=== PATIENT | female | born 1995 | race Caucasian/White ===

== ENCOUNTER 2016-11-13 12:49 | Emergency (ER) | payer BC, OTHER ==
--- NOTE | 2016-11-13 13:20 | ED ORDER SUMMARY ---
..... Patient: LINDY PEERA OrderSheet [facility] VisitID: [id number] [place] [address] 21y, F Registration Date/Time: 11/13/2016 ORDER SHEET Weight: 58.9 kg (stated) Allergies: Amoxicillin GENERAL ORDERS: MEDICATION ORDERS: GI Cocktail WHITE PO 30 mL with Lidocaine Viscous Mouth/Throat 15 mL, Maalox Plus Oral 15 mL (NOW) (13:14 11/13/2016 HBivens A.R.N.P.) (Ack 13:15 SReitz R.N.) (13:36 SReitz R.N.) IV FLUIDS: Ativan IV 2 mg (HIGH ALERT MEDICATION, NOW) (13:14 11/13/2016 HBivens A.R.N.P.) (Ack 13:15 SReitz R.N.) (13:37 SReitz R.N.) ORDER SHEET NOTES: [Electronically signed by Tabatha France R.N. (14:11 11/13/2016)] [Electronically signed by Gayle CarrollR.N.PMendy (17:46 11/13/2016)] [Electronically locked/signed by Tabatha France R.N. (14:11 11/13/2016)]
--- NOTE | 2016-11-13 13:20 | ED NURSING NOTES ---
Clinical Report - Nurses [facility] [address] [place] [address] 11/13/2016 12:56 Patient: LINDY PEREA TRIAGE Triage time 12:59. Acuity: LEVEL 3. Chief Complaint: SORE THROAT and SWELLING OF JAW / FACE. Alert. No acute distress. ( Pt. states she has an infection in her mouth which appeared last night. Then today her lymph nodes are swollen and its causing dyspnea.). SEPSIS SCREEN: Sepsis Screen. Negative (no infection suspected/documented). MAURICIO COMA SCORE: Mauricio Coma Scale: 15- eyes open spontaneously (4); best verbal response- oriented x 4 (5); best motor response- obeys commands (6). --13:07 Tabatha Fracne R.N. 12:58 11/13/16. BP: 127/80. HR: 93. RR: 26. O2 saturation: 100%. Temp: 97.8 F. Pain level now 05/11. --13:07 Tabatha France R.N. Weight: 58.9 kg stated. Height/Length: 63 inches Per Patient. BMI: 23. --13:00 Tabatha France R.N. Medications None. --13:02 Tabatha France R.N. Allergies Amoxicillin. --13:02 Tabatha France R.N. History Arrived by private vehicle. Historian: patient. Accompanied by (boyfriend). Primary physician (Ana Maria walker [place]: Dr. Gilbert). This started yesterday. Treatment INSURANCE SALESPERSON: None. PAST MEDICAL HX: Immunizations: up-to-date. Last normal menstrual period now. SOCIAL HX: Never smoker. No alcohol use or drug use. No infectious disease exposure. ABUSE ASSESSMENT: No report of abuse. NUTRITIONAL RISK ASSESSMENT: The nutritional risk assessment revealed no deficiencies. FUNCTIONAL ASSESSMENT: Functional assessment: no impairments noted. LEARNING NEEDS ASSESSMENT: The learning needs assessment revealed no barriers. --13:07 Tabatha France R.N. PROBLEMS: Anxiety Reaction. Cyclical vomiting syndrome. --13:04 Tabatha France R.N. ADDITIONAL SURGERIES: ANKLES. --13:04 Tabatha France R.N. Interventions ID band on patient. Ambulatory. --13:07 Tabatha France R.N. PHYSICAL ASSESSMENT Ambulatory to room. GENERAL / NEURO / PSYCH: Appears anxious. ( unable to sit still during triage. Pt. is crying and very upset.). HEENT: Voice within normal limits. Mouth within normal limits upon inspection. Mucous membranes are pink. RESPIRATORY: Respirations not labored. CVS: Capillary refill less than 2 seconds. SKIN: Skin is warm and dry. --13:09 Tabatha France R.N. 13:09. ( periorbital bruising on left eye. Pt. states she fell down and hit her eye. Pt. states she feels safe where she is living and in her relations.). --14:00 Tabatha France R.N. NURSING PROGRESS NOTES Patient gowned. Head of bed elevated. Two patient identifiers checked. Call light placed in reach. Side rails up x 2. Bed placed in lowest position. Brakes of bed on. Patient ready for evaluation- chart flagged. --13:09 Tabatha France R.N. 13:14 11/13/2016 Site #1 started via IV in the right with an 20g angiocath; one attempt. Blood drawn: rainbow set. Labeled in the presence of the patient and sent to the lab. Saline lock flushed with 10 mL saline (accessed by GIDEON Painter). --13:14 Tabatha France R.N. EKG time: (1259). EKG was ordered, performed by a tech and shown to the ED physician. --13:20 Sheri Enamorado 13:15 11/13/2016 GI COCKTAIL WHITE (Simethicone) PO 50 mL given. Allergies verified and confirmed 5 rights. --13:36 Tabatha France R.N. 13:15 11/13/2016 Ativan (LORazepam) IVP 2 mg given over 2 minute(s) via site #1. Allergies verified, confirmed 5 rights and sedative warning given to the patient. IV patency established. IV site checked: no pain, redness, or swelling. IV flushed thoroughly pre- and post-medication administration. --13:37 Tabatha France R.N. DISPOSITION / DISCHARGE 13:45 11/13/2016 Site #1 removed upon discharge. Bandage applied. --14:01 [facility] Condition at departure: improved and stable. No learning barriers present. Discharge instructions provided and reviewed with the patient. Patient verbalized understanding. Written instructions provided in [place]. ( Taught side effects of medication and that virus is contagious. Do not share eating/drinking utensils.). The patient was discharged by the nurse practitioner. She was discharged home and accompanied by resource management specialist. She left the Emergency Department ambulatory and via private vehicle. Director Of Sustainability Programs driving. FALL RISK ASSESSMENT: Fall risk assessment completed. No fall risk identified. --14:04 [facility] 14:01 11/13/16. BP: 126/67. HR: 80 (regular). RR: 14 (regular and unlabored). O2 saturation: 96%. Temp: 98.4 F. Pain level now: 0/10. --14:04 [facility] Departure time: 13:45. --14:08 Tabatha France R.N. ( correction to prior charting: all discharge done at 13:45.). --14:09 Tabatha France R.N. Locked/Released at 11/13/2016 14:11 by Tabatha France R.N.
--- NOTE | 2016-11-13 13:20 | ED ORDER SUMMARY ---
..... Patient: LINDY PEREA OrderSheet [facility] VisitID: [id number] [place] [address] 21y, F Registration Date/Time: 11/13/2016 ORDER SHEET Weight: 58.9 kg (stated) Allergies: Amoxicillin GENERAL ORDERS: MEDICATION ORDERS: GI Cocktail WHITE PO 30 mL with Lidocaine Viscous Mouth/Throat 15 mL, Maalox Plus Oral 15 mL (NOW) (13:14 11/13/2016 HBivens A.R.N.P.) (Ack 13:15 SReitz R.N.) (13:36 SReitz R.N.) IV FLUIDS: Ativan IV 2 mg (HIGH ALERT MEDICATION, NOW) (13:14 11/13/2016 HBivens A.R.N.P.) (Ack 13:15 SReitz R.N.) (13:37 SReitz R.N.) ORDER SHEET NOTES: [Electronically signed by Tabatha France R.N. (14:11 11/13/2016)] [Electronically signed by Gayle CarrollR.N.PMendy (17:46 11/13/2016)] [Electronically locked/signed by Tabatha France R.N. (14:11 11/13/2016)]
--- NOTE | 2016-11-13 13:20 | ED CLINICAL REPORT ---
Clinical Report - Physicians/Mid Levels [facility] [address] [place] [address] 11/13/2016 12:56 Patient: LINDY PEREA Time Seen: 1305; upon arrival, initial patient contact, initial documentation, patient care assumed. Arrived- By private vehicle. Historian- patient and significant other. HISTORY OF PRESENT ILLNESS Chief Complaint: MOUTH SORE. This started yesterday and is still present. It was abrupt in onset and has been constant. Pain described as severe. The patient has had a sore throat. She has had multiple painful mouth sores (says there is a cut in her mouth and she doesn't know how she got it). No nasal discharge or congestion or ear pain. (feels lump in her neck, and thinks her airway is closing off, or that she has ca, having issues with anxiety as well). Similar symptoms previously: None. Recent medical care: Not recently seen/assessed. REVIEW OF SYSTEMS No fever, cough, difficulty breathing or chest pain. She has had vomiting (suffers from chronic vomiting, none today). All systems otherwise negative, except as recorded above. PAST HISTORY See nurses notes. PROBLEMS: Anxiety Reaction. Cyclical vomiting syndrome. --13:04 Tabatha France, RMendyN. ADDITIONAL SURGERIES: ANKLES. --13:04 Tabatha France R.N. SOCIAL HISTORY Never smoker. No alcohol use or drug use. No recent travel. Is a local resident. FAMILY HISTORY Negative. ADDITIONAL NOTES The nursing notes have been reviewed with agreement regarding the chief complaint, HPI, ROS, PMH and patient medications and allergies. PHYSICAL EXAM Vital Signs: 11/13/2016 12:58 BP: 127/80. HR: 93. RR: 26. O2 saturation: 100%. Temp: 97.8 F. Appearance: Alert. No acute distress. Anxious. (pt fine one sec, and then starts yelling and freaking out next). Head: Normal external inspection. Eyes: Pupils equal, round and reactive to light. Conjunctivae and eyelids normal. ENT: Ears normal. Nose normal. Gums abnormal. Many tender mouth ulcerations present in the posterior pharynx and on the tongue, buccal surface and gingivae. No erythema at the base of the mouth ulceration(s). No nontender mouth ulcerations. Mild generalized pharyngeal erythema with vesicles present. No right tonsillar exudate, right tonsillar abscess, right tonsillar swelling, right peritonsillitis, left tonsillar exudate, left tonsillar abscess, left tonsillar swelling or left peritonsillitis. Pharynx normal. Lips normal. No trismus present. Uvula midline. Neck: Lymphadenopathy. Normal inspection. Mild right anterior neck and mild left anterior neck lymphadenopathy present. Trachea midline. Thyroid normal. Neck supple. CVS: Normal heart rate and rhythm. Heart sounds normal. Pulses normal. Respiratory: No respiratory distress. Breath sounds normal. Chest nontender. Abdomen: Soft and nontender. No organomegaly. Skin: Normal skin color. No rash. Normal skin turgor. Extremities: Extremities exhibit normal ROM. Extremities nontender. Neuro: Oriented X 3. No motor deficit. No sensory deficit. PROGRESS AND PROCEDURES Patient and spouse counseled in person regarding the patient's stable condition and diagnosis. Differential Diagnosis: Other possible considerations: pharyngitis, herpes, herpetic gingivostomatitis, anxiety, substance abuse, dental trauma, gingivitis. Above considerations are based on history and physical exam. Differential diagnosis was discussed with patient and patient's spouse. Disposition: Discharged home in good and improved condition (13:20). Condition: good and stable. CLINICAL IMPRESSION Herpetic gingivostomatitis Anxiety reaction. INSTRUCTIONS Gargle with warm salt water 3 to 6 times a day until better, using 1/2 teaspoon salt in one glass of water. Warnings: GENERAL WARNINGS: Return or contact your physician immediately if your condition worsens or changes unexpectedly, if not improving as expected, or if other problems arise. Specifically return if problem worsens. Prescription Medications: Zofran 4 mg: Take 1 orally every six hours as needed for nausea/vomiting. Dispense ten (10). No refills. Substitution is permissible. Viscous 2% Lidocaine 30 mL, Maalox 30 mL and Diphenhydramine (12.5 mL/5 mL) 30 mL. Swish, gargle, and spit 1-2 teaspoons every 6 hours as needed for 5 days. Dispense ninety (90) mL. No refills Xanax 0.25 mg: Take 1 orally every 8 hours as needed for anxiety. Dispense fifteen (15). No refills. Substitution is permissible. Follow-up: Follow up with your doctor in about three days as needed. Call for an appointment. Summary of care provided to patient. Understanding of the discharge instructions verbalized by patient. (Electronically signed by Gayle Carroll A.R.N.P. 11/13/2016 17:46)
--- NOTE | 2016-11-13 13:20 | ED NURSING NOTES ---
Clinical Report - Nurses [facility] [address] [place] [address] 11/13/2016 12:56 Patient: LINDY PEREA TRIAGE Triage time 12:59. Acuity: LEVEL 3. Chief Complaint: SORE THROAT and SWELLING OF JAW / FACE. Alert. No acute distress. ( Pt. states she has an infection in her mouth which appeared last night. Then today her lymph nodes are swollen and its causing dyspnea.). SEPSIS SCREEN: Sepsis Screen. Negative (no infection suspected/documented). MAURICIO COMA SCORE: Mauricio Coma Scale: 15- eyes open spontaneously (4); best verbal response- oriented x 4 (5); best motor response- obeys commands (6). --13:07 Tabatha France R.N. 12:58 11/13/16. BP: 127/80. HR: 93. RR: 26. O2 saturation: 100%. Temp: 97.8 F. Pain level now 05/11. --13:07 Tabatha France R.N. Weight: 58.9 kg stated. Height/Length: 63 inches Per Patient. BMI: 23. --13:00 Tabatha France R.N. Medications None. --13:02 Tabatha France R.N. Allergies Amoxicillin. --13:02 Tabatha France R.N. History Arrived by private vehicle. Historian: patient. Accompanied by (boyfriend). Primary physician (Ana Maria walker [place]: Dr. Gilbetr). This started yesterday. Treatment MOLECULAR TECHNOLOGIST: None. PAST MEDICAL HX: Immunizations: up-to-date. Last normal menstrual period now. SOCIAL HX: Never smoker. No alcohol use or drug use. No infectious disease exposure. ABUSE ASSESSMENT: No report of abuse. NUTRITIONAL RISK ASSESSMENT: The nutritional risk assessment revealed no deficiencies. FUNCTIONAL ASSESSMENT: Functional assessment: no impairments noted. LEARNING NEEDS ASSESSMENT: The learning needs assessment revealed no barriers. --13:07 Tabatha France R.N. PROBLEMS: Anxiety Reaction. Cyclical vomiting syndrome. --13:04 Tabatha France R.N. ADDITIONAL SURGERIES: ANKLES. --13:04 Tabatha France R.N. Interventions ID band on patient. Ambulatory. --13:07 Tabatha France R.N. PHYSICAL ASSESSMENT Ambulatory to room. GENERAL / NEURO / PSYCH: Appears anxious. ( unable to sit still during triage. Pt. is crying and very upset.). HEENT: Voice within normal limits. Mouth within normal limits upon inspection. Mucous membranes are pink. RESPIRATORY: Respirations not labored. CVS: Capillary refill less than 2 seconds. SKIN: Skin is warm and dry. --13:09 Tabatha France R.N. 13:09. ( periorbital bruising on left eye. Pt. states she fell down and hit her eye. Pt. states she feels safe where she is living and in her relations.). --14:00 Tabatha France R.N. NURSING PROGRESS NOTES Patient gowned. Head of bed elevated. Two patient identifiers checked. Call light placed in reach. Side rails up x 2. Bed placed in lowest position. Brakes of bed on. Patient ready for evaluation- chart flagged. --13:09 Tabatha France R.N. 13:14 11/13/2016 Site #1 started via IV in the right with an 20g angiocath; one attempt. Blood drawn: rainbow set. Labeled in the presence of the patient and sent to the lab. Saline lock flushed with 10 mL saline (accessed by GIDEON Painter). --13:14 Tabatha France R.N. EKG time: (1259). EKG was ordered, performed by a tech and shown to the ED physician. --13:20 Sheri Enamorado 13:15 11/13/2016 GI COCKTAIL WHITE (Simethicone) PO 50 mL given. Allergies verified and confirmed 5 rights. --13:36 Tabatha France R.N. 13:15 11/13/2016 Ativan (LORazepam) IVP 2 mg given over 2 minute(s) via site #1. Allergies verified, confirmed 5 rights and sedative warning given to the patient. IV patency established. IV site checked: no pain, redness, or swelling. IV flushed thoroughly pre- and post-medication administration. --13:37 Tabatha France R.N. DISPOSITION / DISCHARGE 13:45 11/13/2016 Site #1 removed upon discharge. Bandage applied. --14:01 [facility] Condition at departure: improved and stable. No learning barriers present. Discharge instructions provided and reviewed with the patient. Patient verbalized understanding. Written instructions provided in Turkish. ( Taught side effects of medication and that virus is contagious. Do not share eating/drinking utensils.). The patient was discharged by the nurse practitioner. She was discharged home and accompanied by service station console operator. She left the Emergency Department ambulatory and via private vehicle. Locum Tenens driving. FALL RISK ASSESSMENT: Fall risk assessment completed. No fall risk identified. --14:04 [facility] 14:01 11/13/16. BP: 126/67. HR: 80 (regular). RR: 14 (regular and unlabored). O2 saturation: 96%. Temp: 98.4 F. Pain level now: 0/10. --14:04 [facility] Departure time: 13:45. --14:08 Tabatha France R.N. ( correction to prior charting: all discharge done at 13:45.). --14:09 Tabatha France R.N. Locked/Released at 11/13/2016 14:11 by Tabatha France R.N.
--- NOTE | 2016-11-13 17:46 | ED MAR SUMMARY ---
..... Medication Administration Record [facility] [address] [place] [address] Patient: LINDY PEREA Visit ID: [id number] 21y, F Weight: 58.9 kg Height/Length: 63 in BMI: 23 ALLERGIES: Amoxicillin Given 13:11/13/2016 Tabatha France RStefanie Medication Administered: ATIVAN [IVP] (LORAZEPAM), Dose: 2 mg IVP over 2 minute(s), Site: #1 right. Medication Ordered: Ativan IV 2 mg (HIGH ALERT MEDICATION, NOW). Given 13:11/13/2016 Tabatha France, RMendyNMendy Medication Administered: GI COCKTAIL WHITE [PO] (SIMETHICONE), Dose: 50 mL PO. Medication Ordered: GI Cocktail WHITE PO 30 mL with Lidocaine Viscous Mouth/Throat 15 mL, Maalox Plus Oral 15 mL (NOW).
--- NOTE | 2016-11-13 17:46 | ED MED RECONCILIATION SUMMARY ---
Patient: LINDY PEREA Medication Reconciliation Report [facility] VisitID: [id number] [place] [address] 21y, F Registration Date/Time: 11/13/2016 Weight: 58.9 kg Height/Length: 63 in. BMI: 23.0 ALLERGIES: Amoxicillin The patient's Home Medications are listed below: NONE. The source(s) of the original Home Medication information: Not obtained. The following Medications were given to the patient in the Emergency Department: GI COCKTAIL WHITE [PO] PO 50 mL, administered: 11/13/2016 1:15:00 PM Ativan [IVP] IVP 2 mg, administered: 11/13/2016 1:15:00 PM The following Medications were prescribed to the patient: Zofran 4 mg: Take 1 orally every six hours as needed for nausea/vomiting. Dispense ten (10). No refills. Substitution is permissible. -- Gayle Carroll, A.R.N.P. Viscous 2% Lidocaine 30 mL, Maalox 30 mL and Diphenhydramine (12.5 mL/5 mL) 30 mL. Swish, gargle, and spit 1-2 teaspoons every 6 hours as needed for 5 days. Dispense ninety (90) mL. No refills -- Gayle Carroll A.R.N.P. Xanax 0.25 mg: Take 1 orally every 8 hours as needed for anxiety. Dispense fifteen (15). No refills. Substitution is permissible. -- Gayle Carroll A.R.N.P.
--- NOTE | 2016-11-13 17:46 | ED MAR SUMMARY ---
..... Medication Administration Record [facility] [address] [place] [address] Patient: LINDY PEREA Visit ID: [id number] 21y, F Weight: 58.9 kg Height/Length: 63 in BMI: 23 ALLERGIES: Amoxicillin Given 13:11/13/2016 Tabatha France RStefanie Medication Administered: ATIVAN [IVP] (LORAZEPAM), Dose: 2 mg IVP over 2 minute(s), Site: #1 right. Medication Ordered: Ativan IV 2 mg (HIGH ALERT MEDICATION, NOW). Given 13:11/13/2016 Tabatha France, RMendyNMendy Medication Administered: GI COCKTAIL WHITE [PO] (SIMETHICONE), Dose: 50 mL PO. Medication Ordered: GI Cocktail WHITE PO 30 mL with Lidocaine Viscous Mouth/Throat 15 mL, Maalox Plus Oral 15 mL (NOW).
--- NOTE | 2016-11-13 17:46 | ED MED RECONCILIATION SUMMARY ---
Patient: LINDY PEREA Medication Reconciliation Report [facility] VisitID: [id number] [place] [address] 21y, F Registration Date/Time: 11/13/2016 Weight: 58.9 kg Height/Length: 63 in. BMI: 23.0 ALLERGIES: Amoxicillin The patient's Home Medications are listed below: NONE. The source(s) of the original Home Medication information: Not obtained. The following Medications were given to the patient in the Emergency Department: GI COCKTAIL WHITE [PO] PO 50 mL, administered: 11/13/2016 1:15:00 PM Ativan [IVP] IVP 2 mg, administered: 11/13/2016 1:15:00 PM The following Medications were prescribed to the patient: Zofran 4 mg: Take 1 orally every six hours as needed for nausea/vomiting. Dispense ten (10). No refills. Substitution is permissible. -- Gayle Carroll, A.R.N.P. Viscous 2% Lidocaine 30 mL, Maalox 30 mL and Diphenhydramine (12.5 mL/5 mL) 30 mL. Swish, gargle, and spit 1-2 teaspoons every 6 hours as needed for 5 days. Dispense ninety (90) mL. No refills -- Gayle Carroll A.R.N.P. Xanax 0.25 mg: Take 1 orally every 8 hours as needed for anxiety. Dispense fifteen (15). No refills. Substitution is permissible. -- Gayle Carroll A.R.N.P.
--- NOTE | 2016-11-13 17:46 | ED DISCHARGE INSTRUCTIONS ---
Patient: LINDY PEREA General Instructions [facility] VisitID: [id number] [place] [address] 21y, F Registration Date/Time: 11/13/2016 Herpetic gingivostomatitis Anxiety reaction. INSTRUCTIONS Gargle with warm salt water 3 to 6 times a day until better, using 1/2 teaspoon salt in one glass of water. Warnings: GENERAL WARNINGS: Return or contact your physician immediately if your condition worsens or changes unexpectedly, if not improving as expected, or if other problems arise. Specifically return if problem worsens. Prescription Medications: Zofran 4 mg: Take 1 orally every six hours as needed for nausea/vomiting. Dispense ten (10). No refills. Substitution is permissible. Viscous 2% Lidocaine 30 mL, Maalox 30 mL and Diphenhydramine (12.5 mL/5 mL) 30 mL. Swish, gargle, and spit 1-2 teaspoons every 6 hours as needed for 5 days. Dispense ninety (90) mL. No refills Xanax 0.25 mg: Take 1 orally every 8 hours as needed for anxiety. Dispense fifteen (15). No refills. Substitution is permissible. Follow-up: Follow up with your doctor in about three days as needed. Call for an appointment. Summary of care provided to patient. Understanding of the discharge instructions verbalized by patient. ADDITIONAL INFORMATION Gingivo-Stomatitis [Child] Gingivo-stomatitis is an infection affecting the gums, tongue, throat, tonsils or lining of the mouth. It causes swelling and small painful ulcers. There may be a fever. The cause of your infection may be viral or bacterial. Bacterial infections are treated with an antibiotic. Viral infections are treated only with comfort measures, since antibiotics won't be helpful. This infection should go away within 710 days. Home Care: For Mouth Sores: Use a local numbing solution such as Anbesol (comes in Baby, Regular and Maximum strength) for pain relief. If this is not available, you may use any numbing solution for teething babies. You may apply this directly to the sores with a cotton swab or with your finger. Use the numbing solution just before meals if eating is a problem. For Gum Sores: Use a cotton swab to apply Gly-Oxide (carbamide peroxide) to the gums four times a day. This is an urpr-fza-emesojx antiseptic for the mouth. If this is not available, you may use half-strength hydrogen peroxide. Dilute 1/2 cup hydrogen peroxide with 1/2 cup water. For Mouth Or Gum Sores: Older children may rinse the mouth with warm salt water (1/2 teaspoon of salt in 1 glass of warm water). Give a soft diet with plenty of fluids to prevent dehydration. If your child doesn't want to eat solid foods, it's okay for a few days, as long as s/he drinks lots of fluid. Cool drinks and frozen treats (sherbet) are soothing and easier to take. Avoid citrus juices (orange juice, lemonade, etc.) and salty or spicy foods. These may cause more pain to the mouth sores. Use acetaminophen (Tylenol) for fever, fussiness or discomfort. In infants over six months of age, you may use ibuprofen (Children's Motrin) instead of Tylenol. (Aspirin should never be used in anyone under 18 years of age who is ill with a fever. It may cause severe liver damage.) Children should stay home until their fever is gone and they are eating and drinking well. Follow Up with your doctor as advised if there has been no improvement after five days. Get Prompt Medical Attention if any of the following occur: Unable to eat or drink due to mouth pain Trouble breathing or swallowing Fever of 100.4F (38C) oral or 101.4F (38.5C) rectal or higher, not better with fever medication Unusual fussiness, drowsiness or confusion or seizure No wet diapers for 8 hours, no tears when crying; sunken eyes or dry mouth Stress Reaction Anxiety is the feeling we all get when we think something bad might happen. It is a normal response to stress and usually causes only a mild reaction. When anxiety becomes more severe, emotions may interfere with daily life. In some cases, you may not even be aware of what it is youre anxious about! During an anxiety reaction, you may feel like you are helpless, nervous, depressed or irritable. Your body may show signs of anxiety in many ways. You may experience dry mouth, shakiness, dizziness, weakness, trouble breathing, chest pressure, headache, nausea, diarrhea, tiredness, inability to sleep or sexual problems. Home Care: 1) Try to locate the sources of stress in your life. They may not be obvious! These may include: -- Daily hassles of life which pile up (traffic jams, missed appointments, car troubles, etc.) -- Major life changes, both good (new baby, job promotion) and bad (loss of job, loss of loved one) -- Overload: feeling that you have too many responsibilities and can't take care of all of them at once -- Feeling helpless, feeling that your problems are beyond what youre able to solve 2) Notice how your body reacts to stress. Learn to listen to your body signals. This will help you take action before the stress becomes severe. 3) When you can, do something about the source of your stress. (Avoid hassles, limit the amount of change that happens in your life at one time and take a break when you feel overloaded). 4) Unfortunately, many stressful situations cannot be avoided. It is necessary to learn HOW TO MANAGE STRESS better. There are many proven methods that will reduce your anxiety. These include simple things like exercise, good nutrition and adequate rest. Also, there are certain techniques that are helpful: relaxation and breathing exercises, visualization, biofeedback and meditation. For more information about this, consult your doctor or go to a local bookstore and review the many books and tapes available on this subject. Follow Up If you feel that your anxiety is not responding to self-help measures, contact your doctor or make an appointment with a counselor. Get Prompt Medical Attention if any of the following occur: -- Your symptoms get worse -- Chest pain or trouble breathing -- Severe headache not relieved by rest and mild pain reliever -- Rapid or irregular heartbeat, fainting Viral Pharyngitis (Sore Throat) Your throat pain is due to an infection called "Viral Pharyngitis", commonly known as "Sore Throat". This is a contagious illness. It is spread through the air by coughing, kissing or by touching others after touching your mouth or nose. Symptoms include throat pain worse with swallowing, aching all over, headache and fever. Unlike strep throat, which is a bacterial infection, this illness does not require treatment with an antibiotic. Home Care: If your symptoms are severe, rest at home for the first 2-3 days. Children: Use acetaminophen (Tylenol) for fever, fussiness or discomfort. In infants over six months of age, you may use ibuprofen (Children's Motrin) instead of Tylenol. [NOTE: If your child has chronic liver or kidney disease or ever had a stomach ulcer or GI bleeding, talk with your fernie doctor before using these medicines.] (Aspirin should never be used in anyone under 18 years of age who is ill with a fever. It may cause severe liver damage.) Adults: You may use acetaminophen (Tylenol) or ibuprofen (Motrin, Advil) to control pain or fever, unless another medicine was prescribed. [NOTE: If you have chronic liver or kidney disease or ever had a stomach ulcer or GI bleeding, talk with your doctor before using these medicines.] Throat lozenges or sprays (Chloraseptic and others) will reduce pain. Gargling with warm salt water will also reduce throat pain. Dissolve 1/2 teaspoon of salt in 1 glass of warm water. This is especially useful just before meals. Follow Up with your doctor or as directed by our staff if you are not improving over the next week. Get Prompt Medical Attention if any of the following occur: Fever over 100.5F (38.0C) oral, or over 101.5F (38.6C) rectal for more than three days New or worsening ear pain, sinus pain or headache Painful lumps in the back of your neck Unable to swallow liquids or open your mouth wide due to throat pain Trouble breathing or noisy breathing Muffled voice New rash Ondansetron Oral disintegrating tablet What is this medicine? ONDANSETRON (on RENETTA se pilar) is used to treat nausea and vomiting caused by chemotherapy. It is also used to prevent or treat nausea and vomiting after surgery. How should I use this medicine? These tablets are made to dissolve in the mouth. Do not try to push the tablet through the foil backing. With dry hands, peel away the foil backing and gently remove the tablet. Place the tablet in the mouth and allow it to dissolve, then swallow. While you may take these tablets with water, it is not necessary to do so. Talk to your stand up comedian regarding the use of this medicine in children. Special care may be needed. What side effects may I notice from receiving this medicine? Side effects that you should report to your doctor or health wound care specialist as soon as possible: allergic reactions like skin rash, itching or hives, swelling of the face, lips, or tongue breathing problems dizziness fast or irregular heartbeat feeling faint or lightheaded, falls fever and chills swelling of the hands and feet tightness in the chest Side effects that usually do not require medical attention (report to your doctor or health wound care specialist if they continue or are bothersome): constipation or diarrhea headache What may interact with this medicine? Do not take this medicine with any of the following medications: -apomorphine -cisapride -dofetilide -dronedarone -pimozide -thioridazine -ziprasidone This medicine may also interact with the following medications: -carbamazepine -phenytoin -rifampicin -tramadol -other medicines that prolong the QT interval (cause an abnormal heart rhythm) What if I miss a dose? If you miss a dose, take it as soon as you can. If it is almost time for your next dose, take only that dose. Do not take double or extra doses. Where should I keep my medicine? Keep out of the reach of children. Store between 2 and 30 degrees C (36 and 86 degrees F). Throw away any unused medicine after the expiration date. What should I tell my health care provider before I take this medicine? They need to know if you have any of these conditions: heart disease history of irregular heartbeat liver disease low levels of magnesium or potassium in the blood an unusual or allergic reaction to ondansetron, granisetron, other medicines, foods, dyes, or preservatives or trying to get breast-feeding What should I watch for while using this medicine? Check with your doctor or health wound care specialist as soon as you can if you have any sign of an allergic reaction. Alprazolam Oral tablet What is this medicine? ALPRAZOLAM (al PRAY cony ewing) is a benzodiazepine. It is used to treat anxiety and panic attacks. How should I use this medicine? Take this medicine by mouth with a glass of water. Follow the directions on the prescription label. Take your medicine at regular intervals. Do not take it more often than directed. If you have been taking this medicine regularly for some time, do not suddenly stop taking it. You must gradually reduce the dose or you may get severe side effects. Ask your doctor or health wound care specialist for advice. Even after you stop taking this medicine it can still affect your body for several days. Talk to your stand up comedian regarding the use of this medicine in children. Special care may be needed. What side effects may I notice from receiving this medicine? Side effects that you should report to your doctor or health wound care specialist as soon as possible: allergic reactions like skin rash, itching or hives, swelling of the face, lips, or tongue confusion, forgetfulness depression difficulty sleeping difficulty speaking feeling faint or lightheaded, falls mood changes, excitability or aggressive behavior muscle cramps trouble passing urine or change in the amount of urine unusually weak or tired Side effects that usually do not require medical attention (report to your doctor or health wound care specialist if they continue or are bothersome): change in sex drive or performance changes in appetite What may interact with this medicine? Do not take this medicine with any of the following medications: certain medicines for HIV infection or AIDS ketoconazole itraconazole This medicine may also interact with the following medications: control pills certain macrolide antibiotics like clarithromycin, erythromycin, troleandomycin cimetidine cyclosporine ergotamine grapefruit juice herbal or dietary supplements like kava kava, melatonin, dehydroepiandrosterone, DHEA, Ensign's Wort or valerian imatinib, [id number] isoniazid levodopa medicines for depression, anxiety, or psychotic disturbances prescription pain medicines rifampin, rifapentine, or rifabutin some medicines for blood pressure or heart problems some medicines for seizures like carbamazepine, oxcarbazepine, phenobarbital, phenytoin, primidone What if I miss a dose? If you miss a dose, take it as soon as you can. If it is almost time for your next dose, take only that dose. Do not take double or extra doses. Where should I keep my medicine? Keep out of the reach of children. This medicine can be abused. Keep your medicine in a safe place to protect it from theft. Do not share this medicine with anyone. Selling or giving away this medicine is dangerous and against the law. Store at room temperature between 20 and 25 degrees C (68 and 77 degrees F). Throw away any unused medicine after the expiration date. What should I tell my health care provider before I take this medicine? They need to know if you have any of these conditions: an alcohol or drug abuse problem bipolar disorder, depression, psychosis or other mental health conditions glaucoma kidney or liver disease lung or breathing disease myasthenia gravis Parkinson's disease porphyria seizures or a history of seizures suicidal thoughts an unusual or allergic reaction to alprazolam, other benzodiazepines, foods, dyes, or preservatives or trying to get breast-feeding What should I watch for while using this medicine? Visit your doctor or health wound care specialist for regular checks on your progress. Your body can become dependent on this medicine. Ask your doctor or health wound care specialist if you still need to take it. You may get drowsy or dizzy. Do not drive, use machinery, or do anything that needs mental alertness until you know how this medicine affects you. To reduce the risk of dizzy and fainting spells, do not stand or sit up quickly, especially if you are an older patient. Alcohol may increase dizziness and drowsiness. Avoid alcoholic drinks. Do not treat yourself for coughs, colds or allergies without asking your doctor or health wound care specialist for advice. Some ingredients can increase possible side effects. You have been given the following additional information: Gingivo - Stomatitis (Child) Anxiety Reaction Pharyngitis, Viral Ondansetron Oral disintegrating tablet Alprazolam Oral tablet (Electronically signed by Gayle Carroll A.R.N.P. 11/13/2016 17:46)
== END 2016-11-13 13:45 | disposition home or self-care (01) ==
LOC: ED SRH 12:49
DX: B00.2 Herpesviral gingivostomatitis and pharyngotonsillitis (principal); F41.1 Generalized anxiety disorder